=== PATIENT | female | born 1940 | race Caucasian/White ===

== ENCOUNTER 2019-01-28 07:34 | Emergency (ER) | payer MEDICARE ==
--- NOTE | 2019-01-28 08:54 | UC ---
Complaint Female HPI - HPI Summary HPI Summary: 78 y/o female presents to the urgent care c/o urinary frequency and burning on urination since yesterday. Pt reports Hx of UTI's in the past. Pt w/ hx of lung cancer on Tarceva and Metrotrexate PO . Pt ;lives in [place] and is here visiting for her Daughter's graduation. Pt has not taken anything to alleviate symptoms. She has been drinking a lot of water. Pain on urination is 4/10. Pt denies fever. lower back pain, flank pain, vaginal discharge, abdominal pain, SOB, chest pain, N/V/d. - History Of Current Complaint Chief Complaint: UCGU Stated Complaint: URINARY ISSUE Time Seen by Provider: 01/28/19 08:10 Hx Obtained From: Patient Onset/Duration: Gradual Onset, Lasting Days - 1 day, Still Present, Worse Since - this morning Timing: Constant, Lasting Seconds Severity Initially: Mild Severity Currently: Mild Pain Intensity: 4 Pain Scale Used: 0-10 Numeric Character: Burning Aggravating Factor(s): Urination Alleviating Factor(s): Other - drinking water Associated Signs And Symptoms: Positive: Negative. Negative: Fever, Back Pain, Vaginal Discharge, Nausea, Vomiting(# Of Episodes =), Genital Swelling - Risk Factors Ectopic Risk Factor: Negative Ovarian Torsion Risk Factor: Negative - Allergies/Home Medications Allergies/Adverse Reactions: Allergies Allergy/AdvReac Type Severity Reaction Status Date / Time No Known Allergies Allergy Verified 01/28/19 08:02 Home Medications: Home Medications Acetaminophen [Mapap] 1,000 mg PO ONCE PRN 01/28/19 [History Confirmed 01/28/19] Aspirin 81 mg PO QPM 01/28/19 [History Confirmed 01/28/19] Chlorhexidine [Chlorhexidine Flavor] 1 dose PO DAILY PRN 01/28/19 [History Confirmed 01/28/19] Cholecalciferol (Vitamin D3) [Vitamin D3] 2,000 unit PO DAILY 01/28/19 [History Confirmed 01/28/19] Citalopram Hydrobromide [Citalopram HBr] 5 mg PO QPM 01/28/19 [History Confirmed 01/28/19] Cranberry 400 mg PO DAILY 01/28/19 [History Confirmed 01/28/19] Cyanocobalamin (Vitamin B-12) [Vitamin B-12] 1,000 mcg SL DAILY 01/28/19 [ History Confirmed 01/28/19] Dexlansoprazole [Dexilant] 60 mg PO QAM 01/28/19 [History Confirmed 01/28/19] Diclofenac Sodium [Voltaren] 1 applic TOPICAL DAILY PRN 01/28/19 [History Confirmed 01/28/19] Dm/PE/Acetaminophen/Doxylamine [Vicks Nyquil Severe Cold-Flu] 1 each PO ONCE PRN 01/28/19 [History Confirmed 01/28/19] Erlotinib HCl [Tarceva] 1 tab PO DAILY 01/28/19 [History Confirmed 01/28/19] Estradiol [Estrace] 0.01 mg PO WEEKLY 01/28/19 [History Confirmed 01/28/19] Fem Dophilius 1 tab PO DAILY 01/28/19 [History Confirmed 01/28/19] Fluoride (Sodium) [Prevident] 1.1 % DT DAILY 01/28/19 [History Confirmed ] Folic Acid 1 mg PO DAILY 01/28/19 [History Confirmed 01/28/19] Levothyroxine Sodium [Synthroid] 25 mcg PO DAILY 01/28/19 [History Confirmed ] Methotrexate [Xatmep] 2.5 mg PO WEEKLY 01/28/19 [History Confirmed 01/28/19] Methylcellulose [Citrucel] 500 mg PO DAILY 01/28/19 [History Confirmed 01/28/19] Metoprolol Succinate 25 mg PO QPM 01/28/19 [History Confirmed 01/28/19] Mirabegron [Myrbetriq] 25 mg PO QPM 01/28/19 [History Confirmed 01/28/19] Mv-Min/Vit C/Glut/Lysine/Hb124 [Airborne Effervescent Tablet] 1 tab PO DAILY [History Confirmed 01/28/19] [place]-3 Fatty Acids/Fish Oil [Fish Oil 1,000 mg Softgel] 1 tab PO DAILY [History Confirmed 01/28/19] Pitavastatin Calcium [Livalo] 2 mg PO DAILY 01/28/19 [History Confirmed 01/28/19 ] Ubidecarenone [Co Q-10] 100 mg PO DAILY 01/28/19 [History Confirmed 01/28/19] raNITIdine HCl [Zantac] 150 mg PO QPM 01/28/19 [History Confirmed 01/28/19] PMH/Surg Hx/FS Hx/Imm Hx Previously Healthy: Yes Cardiovascular History: Cardiac Disease, Myocardial Infarction Other GI/ History: UTI's Cancer History: Lung Cancer - Surgical History Surgical History: Yes Surgery Procedure, Year, and Place: hysterectomy, colecystectomy - Family History Known Family History: Positive: Cardiac Disease - Social History Occupation: Retired Lives: With Family Alcohol Use: None Substance Use Type: None Smoking Status (MU): Never Smoked Tobacco Review of Systems All Other Systems Reviewed And Are Negative: Yes Constitutional: Positive: Negative Skin: Positive: Negative Eyes: Positive: Negative ENT: Positive: Negative Respiratory: Positive: Negative Cardiovascular: Positive: Negative Gastrointestinal: Positive: Negative Genitourinary: Positive: Dysuria, Frequency, Urgency Motor: Positive: Negative Neurovascular: Positive: Negative Musculoskeletal: Positive: Negative Neurological: Positive: Negative Psychological: Positive: Negative Is Patient Immunocompromised?: No Physical Exam - Summary Physical Exam Summary: VITAL SIGNS: Reviewed. GENERAL: Patient is a well developed and nourished female who is sitting comfortable in the examining table. Patient is not in any acute respiratory distress. HEAD AND FACE: No signs of trauma. No ecchymosis, hematomas or skull depressions. No sinus tenderness. EYES: PERRLA, EOMI x 2, No injected conjunctiva, clear watery eyes, no nystagmus. No photophobia. EARS: Hearing grossly intact. Ear canals and tympanic membranes are within normal limits. MOUTH: pharynx with no erythema, no exudates,no palatal petechiae. no B/L tonsillar enlargement Uvula in midline. NECK: Supple, trachea is midline, no lymphadenopathy, no JVD, no carotid bruit, no c-spine tenderness, neck with full ROM. CHEST: Symmetric, no tenderness at palpation LUNGS: Clear to auscultation bilaterally. No wheezing or crackles. CVS: Regular rate and rhythm, S1 and S2 present, no murmurs or gallops appreciated. ABDOMEN: Soft, non-tender. No signs of distention. No rebound no guarding, and no masses palpated. Bowel sounds are normal. BACK:no scoliosis or lesions, non tender to palpation, No B/L CVA tenderness EXTREMITIES: FROM in all major joints, no edema, no cyanosis or clubbing. NEURO: Alert and oriented x 3. No acute neurological deficits. Speech is normal and follows commands. SKIN: Dry and warm Triage Information Reviewed: Yes Vital Signs: Initial Vital Signs Temp 97.2 F 01/28/19 07:46 Pulse 63 01/28/19 07:46 Resp 18 01/28/19 07:46 BP 142/65 01/28/19 07:46 Pulse Ox 97 01/28/19 07:46 Complaint Female Dx - Course Course Of Treatment: 78 y/o female presents to the urgent care c/o urinary frequency and burning on urination since yesterday. Pt reports Hx of UTI's in the past. Pt w/ hx of lung cancer on Tarceva and Metrotrexate PO . Pt ;lives in [place] and is here visiting for her Daughter's graduation. Pt has not taken anything to alleviate symptoms. She has been drinking a lot of water. Pain on urination is 4/10. Pt denies fever. lower back pain, flank pain, vaginal discharge, abdominal pain, SOB, chest pain, N/V/d. Hx obtained. PE: WNL. UA results: Blood 1+, Nitrates positive, Leukoesterase 3+. I spoke to Dr Gomez in regard to what antibiotic to Rx since Pt is in Tarceva and Metrotrexate which interacts w/ Ciprofloxacin PO which is the antibiotic she is requesting. Pt w/ Hx of recurrent UTI. Dr Lanza recommended Macrobic.. However Pt called her PCP in [place] Dr Handley. I spoke to him and he recommended Bactrim PO since in last Urine culture it was sensitive and she stopped metrotrexae avout 3 weeks ago. Pt Rx Bactrim PO x 7 days.. Advised to increase fluid intake. Urine sent for culture if any abnormality Pt will be notified for further treatment. Pt advised If symptoms do not improve to return to the urgent care or f/u with PCP. Pt understood and agreed. Left the clinic ambulating. - Differential Dx/Diagnosis Differential Diagnosis/HQI/PQRI: Cervicitis, Retained Foreign Body, Ureteral Stone, Urinary Tract Infection Provider Diagnosis: UTI (urinary tract infection), Elevated BP without diagnosis of hypertension Discharge - Sign-Out/Discharge Documenting (check all that apply): Patient Departure - D/c home All imaging exams completed and their final reports reviewed: No Studies - Discharge Plan Condition: Stable Disposition: HOME Prescriptions: Sulfamethox/Trimethoprim DS* [Bactrim DS 800/160 TAB*] 1 tab PO BID #14 tab Patient Education Materials: Urinary Tract Infection in Women (ED) Referrals: [facility] [place] [facility] [Outside] - 2 Days Additional Instructions: 1- Please take Macrobid 100mg PO x 7 days. Increase increase fluid intake. drink cranberry juice. 2-Urine sent for culture if any abnormality, you will be notified for further treatment. 3-If symptoms do not improve please return to the urgent care or f/u with your PCP in 2-3 days for further management in your symptoms. 4- Your BP is elevated today. please decrease salt in your diet, monitor BP and if it continues to be elevated please f/u with your PCP for further management. - Billing Disposition and Condition Condition: STABLE Disposition: Home - Attestation Statements Provider Attestation: I was available for consult. This patient was seen by the JERAD. The patient was not presented to, seen by, or examined by me. -Candida
== END 2019-01-28 09:50 | disposition home or self-care (01) ==
LOC: UCEAST 07:34
DX: N39.0 Urinary tract infection, site not specified (principal); R03.0 Elevated blood-pressure reading, without diagnosis of hypertension; I25.2 Old myocardial infarction
CPT/HCPCS: 81003; 87077; 87086; 87186; 99202; G0463